=== PATIENT | male | born 1970 | race Caucasian/White ===

== ENCOUNTER → 2019-07-07 14:08 | Outpatient (CLI) | payer BC, SELFPAY ==
--- NOTE | 2019-07-07 14:17 | XR_ITS ---
PROCEDURE: XR LUMBAR SPINE 2-3V CLINICAL INDICATION: Low back pain COMPARISON: No exams were available for comparison FINDINGS: There is a transitional segment at the lumbosacral junction. There is no acute fracture or dislocation. Chronic appearing anterior wedging of T12 and to a lesser degree L1 is noted with loss of 1/4 of the anterior vertebral body height of T12 . Some vacuum phenomenon appears present at T12-L1 and L5-S1 disc spaces. There is degenerative loss L5-S1 disc space height. Marginal osteophytes are seen bridging left L3-4 and L4-5 disc spaces. Atherosclerotic calcifications are seen in the abdominal aorta and iliac vessels. There are calcifications projecting over both renal beds measuring up to 5 millimeters suggesting bilateral nephrolithiasis. There is a non-specific abdominal gas pattern. IMPRESSION: Degenerative disc disease T12-L1 and L5-S1 and mild chronic wedge deformities T12 and L1. Bilateral nephrolithiasis is suggested. Dictated by: Stu Castano 07/07/2019 14:59 Electronically signed by Stu Castano in [place] 07/07/2019 14:59
== END ==
PROVIDERS: PCP Emergency Medicine; Visit Provider Emergency Medicine
DX: M54.5 Low back pain (principal)
CPT/HCPCS: 72100

== ENCOUNTER → 2019-08-07 13:35 | Outpatient (CLI) | payer BC, SELFPAY ==
--- NOTE | 2019-08-07 13:35 | MR_ITS ---
PROCEDURE: MR LUMBAR SPINE WO CON CLINICAL INDICATION: low back pain Low back pain, left hip and leg pain with burning and numbness COMPARISON: XR LUMBAR SPINE 2-3V from 07/07/2019 TECHNIQUE: Standard multiplanar multiecho sequences are performed without contrast. 3-D MIP and myelographic images are also rendered and reviewed FINDINGS: There is normal alignment. The spinal cord ends at the T12-L1 level. T11-T12: Degenerate disc disease with mild bulging disc. T12-L1: Unremarkable. L1-L2: Unremarkable. L2-L3: Degenerate disc disease with mild bulging disc along with facet and ligamentum hypertrophy with mild to moderate bilateral lateral recess and mild bilateral foraminal narrowing. L3-L4: Degenerative disc disease with bulging disc with facet ligamentum hypertrophy with mild to moderate bilateral lateral recess narrowing and mild bilateral foraminal narrowing. Increased T1 and T2 signal noted in the L4 vertebral body on the left consistent with lipoma or lipid rich hemangioma L4-5: Degenerative disc disease with bulging disc. There is mild retrolisthesis of L4 on L5 of 2 mm. There is facet ligamentum hypertrophy with moderate bilateral foraminal narrowing slightly greater on the left. There is borderline narrowing of the canal at eleven mm. L5-S1: Mild degenerative disc disease IMPRESSION: There is multilevel lumbar spondylosis with degenerative disc disease along with facet ligamentum hypertrophy with bilateral lateral recess and foraminal narrowing. Please see above for detailed description at each level. There is borderline canal stenosis at L4-5. No extruded herniated disc evident Dictated by: Artem French MD 08/08/2019 12:00 Electronically signed by Artem French MD in [place] 08/08/2019 12:00
== END ==
PROVIDERS: PCP Emergency Medicine; Visit Provider Emergency Medicine
DX: M54.5 Low back pain (principal); M79.605 Pain in left leg
CPT/HCPCS: 72148; 76376

== ENCOUNTER → 2019-08-10 09:46 | Outpatient (POV) | payer BC, SELFPAY ==
[2019-08-10 10:04] VITALS: BP 129/78; PULSE 79; RESP 18; TEMP 36.6; O2SAT 99; BMI 37.1
--- NOTE | 2019-08-10 10:56 | [facility].PMCON ---
Assessment and Plan (1) Degenerative disc disease Current visit: Yes Status: Chronic Qualifiers: Spinal region: lumbar Qualified Code(s): M51.36 - Other intervertebral disc degeneration, lumbar region Category: Medical (2) Lumbar radiculopathy Current visit: Yes Status: Chronic Category: Medical Code(s): M54.16 - Radiculopathy, lumbar region - Assessment and plan all Dx Assessment and Plan for all problems:: At this time the patient is adamant that there is nothing we can provide him if it is not medications. Patient states he will need to go somewhere else. I discussed with him that his primary care physician put potentially send him to another pain clinic. Patient's ORT is higher than optimal. I would recommend that anybody prescribing any controlled substances would have a urine drug screen prior to prior to prescribing. Patient is welcome to return if he is interested in injective therapies. Dr. Cook has reviewed this note and agrees with this plan of care. This note was dictated using voice recognition software and may contain errors or omissions HPI - Data of Consult Consult date: 08/10/19 Requesting Physician: Mayra David APRN Primary Care Provider: Don Willard APRN - Consult Narrative Reason for consult: Back pain History of present illness: Mr. Snyder is a 48 year old male who presents today for consultation in regards to his low back pain. Patient rates his pain today a 5 out of 10. He does have an recent MRI showing degenerative changes along with ligamentum flavum hypertrophy. Patient states that his low back and left leg are painful along with numbness and tingling. Patient has had surgery back in 2002 however he is unsure of who his doctor was. Patient has been on gabapentin previously. He was going to Dr. Alfonso Pozo up in [place]. Patient states he was not getting any injective therapy he was just receiving oxycodone and gabapentin. Patient then moved service to [place]. Patient is recently moved to [place]. He is establishing care here. Patient states he has not had physical therapy for quite some time however he does stretch at home. Patient states that he has no interest in injective therapy. He states I do not have time to get down in my back if that is all you can do for me . Patient and I discussed gabapentin I also discussed a potential urine drug screen. Patient at this time informed me that he is in need of stronger medications and if I cannot provide that he would like to go somewhere else. CC: Mayra David APRN [facility] History I have reviewed the patient's past medical history: Yes Medical History: Reports:: Asthma, Hyperlipidemia, Hypertension Denies:: Cancer, Diabetes Mellitus Type 1, Diabetes Mellitus Type 2, MRSA *Have you ever received a pneumonia vaccine?: Yes *Have you received a flu vaccine this season?: Yes Other Medical History: Reports: Arthritis Other Surgeries: Yes: Cardiac Catheterization, Cardiac Surgery Amputation: No Fractures: No - *Social History Smoking Status: Current every day smoker Tobacco Type: cigarettes # Packs/Day (cigarettes): 1 Alcohol Intake: never Substance Use Type: denies use *Occupational Status:: other Housing: house Household Members: other *Travel in the last 8 weeks: None Family Hx:: Unable to obtain Review of Systems - Review of Systems ROS General: no recent weight change, no fever, no sleep disturbances Respiratory: no cough, no shortness of air, no recurring pulmonary infections Cardiovascular/Peripheral Vascular: No chest pain, No palpitations, no edema, no shortness of breath. Gastrointestinal: no new onset incontinence, normal bowel movements reported Genitourinary: no new onset incontinence Musculoskeletal: Back pain, leg pain Psychiatric: normal mood/ affect Neurological: [denies new onset weakness in extremities], [denies new onset balance issues] Meds Home Med
== END ==
PROVIDERS: PCP Nurse Practitioner Family; Visit Provider Clinical Nurse Specialist Family Health
DX: M51.16 Intervertebral disc disorders with radiculopathy, lumbar region (principal)
CPT/HCPCS: 99202